=== PATIENT | female | born 1950 | race Caucasian/White ===

== ENCOUNTER 2021-01-16 09:21 | Emergency (ER) | payer MEDICARE, OTHER, SELFPAY ==
[2021-01-16 09:22] VITALS: BP 149/68; PULSE 55; RESP 18; TEMP 35.8; O2SAT 97; BMI 33.5
--- NOTE | 2021-01-16 09:34 | CTR_ITS ---
PROCEDURE INFORMATION: Exam: CT Abdomen And Pelvis Without Contrast Exam date and time: 01/16/2021 9:45 AM Age: 70 years old Clinical indication: Abdominal pain; Flank; Right; Prior surgery; Surgery type: Gb; Additional info: Right flank pain, hematuria TECHNIQUE: Imaging protocol: Computed tomography of the abdomen and pelvis without contrast. Radiation optimization: All CT scans at this facility use at least one of these dose optimization techniques: automated exposure control; mA and/or kV adjustment per patient size (includes targeted exams where dose is matched to clinical indication); or iterative reconstruction. COMPARISON: No relevant prior studies available. RADIATION DOSE METRICS: Total DLP (mGy-cm): 1719.85 FINDINGS: Lungs: Mild basilar atelectasis/scarring. Mediastinal space: Small sliding hiatal hernia. Liver: Normal. Gallbladder and bile ducts: Cholecystectomy clips. Pancreas: Normal. No ductal dilation. Spleen: Spleen normal in size. Scattered punctate calcified granulomas. Adrenal glands: Normal. No mass. 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 3 mm calculus at the right ureteral orifice causing mild/moderate hydroureteronephrosis. No additional urinary tract calculi. No hydroureteronephrosis on the left. Normal renal contours. Stomach and bowel: Pancolonic diverticulosis without evidence of active diverticulitis. Appendix: No evidence of appendicitis. Intraperitoneal space: No free air. No significant fluid collection. Vasculature: Scattered atherosclerotic calcification. No abdominal aortic aneurysm. Lymph nodes: Unremarkable. No enlarged lymph nodes. Urinary bladder: Bladder partially filled. 3 mm calculus at the right ureteral orifice as described. Reproductive: Uterus not identified. Bones/joints: No acute or aggressive osseous lesion. Lumbar degenerative changes. Generalized osteopenia. Soft tissues: Unremarkable. CT/CT kidney stone 18715 IMPRESSION: 1. 3 mm obstructing calculus at the right ureteral orifice causing mild/moderate hydronephrosis. 2. Right renal partial duplication anomaly. 3. Incidental note of diverticulosis without evidence of active diverticulitis. Other chronic and incidental findings as described. Radiation Dose CTDIVOL = (mGy): DLP = 1719.85 (mGy-cm)
--- NOTE | 2021-01-16 09:35 | ED_ITS ---
HPI - Female Genitourinary General: Chief complaint: Urogenital-Female Stated complaint: Possible Kidney Stone Time Seen by Provider: 01/16/21 09:24 History of Present Illness: HPI Narrative: Patient planes about right flank pain and hematuria. Onset of pain was this morning severe. Patient has a history of UTI she has been treated for for the last couple weeks has recently been on Cipro and just finished that. Does complain about nausea no fever slight chills. MD elicited complaint: UTI and flank pain Pertinent past history: recurrent UTIs Onset (ago): minute(s) Location of symptoms: flank Severity: moderate Female Urogenital Radiation: Non-Radiating and R Flank Severity scale (1-10): 5 Quality of pain: sharp and aching Consistency: constant Vaginal discharge: none Exacerbating factors: none Relieving factors: none Associated symptoms: Reports fevers/chills and nausea; Deny headache(s) Review of Systems Const: Denies: fever(s), chills or body aches Eyes: Denies: change in vision or blurry vision ENMT: Denies: throat pain or nasal congestion Card: Denies: chest pain or dyspnea on exertion Resp: Denies: dyspnea, productive cough or non-productive cough GI: Reports: nausea : Reports: flank pain and hematuria Musc: Denies: extremity pain Skin/Breast: Denies: rash Neuro: Denies: headache(s) Psych: Denies: anxiety or depression Davin/Lymph: Denies: easy bruising Physical Exam Const: COMMON NORMALS: no acute distress, average body habitus and patient oriented x3 HENMT: COMMON NORMALS: normocephalic HEAD & SCALP: normal to inspection and normocephalic FACE & SINUS: normal facial exam Eye: COMMON NORMALS: conjunctivae normal GENERAL EYE: appearance normal, both eyes and all related structures CONJUNCTIVA: Yes conjunctivae normal Neck/C-Spine: COMMON NORMALS: no JVD Chest: COMMONS NORMALS: normal inspection of the chest Resp: COMMON NORMALS: normal respiratory effort and clear to auscultation bilaterally AUSCULTATION: clear to auscultation bilaterally Cardio: COMMON NORMALS: no JVD, regular rate and regular rhythm RATE: regular rate RHYTHM: regular rhythm GI: COMMON NORMALS: Normal to inspection, nondistended, normoactive bowel sounds present : BLADDER/KIDNEY EXAM: Yes CVA tenderness on the right Back/Pelvis: GENERAL BACK: Yes CVA tenderness Extremity: COMMON NORMALS: normal to inspection and full ROM Neuro: COMMON NORMALS: patient oriented x3 Course Vital Signs: Vital signs: Vital Signs Temperature 96.4 F L 01/16/21 09:22 Pulse Rate 55 L 01/16/21 09:22 Respiratory Rate 18 01/16/21 09:22 Blood Pressure 149/68 01/16/21 09:22 Pulse Oximetry 97 01/16/21 09:22 Coding Level of Care Code ED Operations Support Representative for Josefina Dumont
[2021-01-16 09:39] VITALS: BP 149/68; PULSE 54; RESP 18; O2SAT 96
[2021-01-16] MEDS: ondansetron 2 mg/ML SDV 2 mL 4 MG IVP (09:48)
[2021-01-16] MEDS: ketorolac 30 mg/mL INJ IVP (09:48)
[2021-01-16] MEDS: sodium chloride 0.9% 1,000 ML 999 ML IV (09:49)
[2021-01-16 09:54] LABS: Basophils # 0.1 10^3/uL (0.0-0.1); Basophils % 0.5 %; Eosinophils # 0.2 10^3/uL (0.0-0.8); Eosinophils % 2.1 %; Hematocrit 39.6 % (37.0-47.0); Hemoglobin 12.6 g/dL (11.5-15.3); Lymphocytes # 2.2 10^3/uL (0.8-4.8); Mean Corpuscular HGB Conc 31.8 g/dL (30.0-36.0); Mean Corpuscular Hemoglobin 29.6 pg (28.0-34.0); Mean Platelet Volume 10.5 fL (7.4-10.4); Monocytes # 0.4 10^3/uL (0.2-0.9); Monocytes % 4.3 %; Neutrophils # 6.94 10^3/uL (1.8-7.7); Neutrophils % 70.8 %; Nucleated Red Blood Cells % 0 %; Platelet Count 239 10^3/cmm (130-400); Red Blood Count 4.26 10^6/uL (4.1-5.3); Red Cell Distribution Width 13.4 % (12.1-15.1); White Blood Count 9.8 10^3/uL (4.0-10.0)
[2021-01-16 10:25] LABS: Lactate (Lactic Acid level) 1.1 mmol/L (0.5-2.2)
[2021-01-16 10:26] LABS: Alanine Aminotransferase 17 U/L (0-33); Albumin Level 3.8 g/dL (3.5-5.2); Alkaline Phosphatase 52 IU/L (35-105); Anion Gap 15.9 (5-19); Aspartate Amino Transferase 14 U/L (0-32); Blood Urea Nitrogen 11 mg/dL (8-23); Calcium 8.5 mg/dL (8.5-10.5); Carbon Dioxide 22 mmol/L (22-29); Chloride 104 mmol/L (98-107); Glomerular Filtration Rate 122.7 mL/min (90-130); Glucose 165 mg/dL (65-115); Lipase 18 U/L (13-60); Osmolality Calculated 289 mOsm/kg (285-295); Potassium 3.9 mmol/L (3.5-5.1); Sodium 138 mmol/L (136-145); Total Bilirubin 0.3 mg/dL (0.15-1.2); Total Protein 6.8 g/dL (6.6-8.7)
[2021-01-16 10:31] VITALS: PULSE 58; RESP 18; O2SAT 98
[2021-01-16 11:15] LABS: Add Urine Microscopic? YES; Bilirubin Urine Neg (Negative); Blood Urine 3+ (Negative); Glucose Urine UA Norm (Normal); Ketones Urine Negative (Negative); Leukocyte Esterase Urine Negative (Negative); Nitrate Urine Negative (Negative); Protein Urine Neg (Negative); Squamous Epithelial Cell Urine 0-4 /hpf (0-5); Urine Appearance SL Hazy (CLEAR); Urine Color Yellow (Yellow); Urobilinogen Urine Norm (Negative); pH Urine 5 (5-7)
[2021-01-16 11:16] LABS: Add Urine Culture? Yes; Bacteria Urine TRACE /hpf; Mucus Urine TRACE /hpf
[2021-01-16 11:54] VITALS: BP 136/60; PULSE 58; RESP 18; O2SAT 98
== END 2021-01-16 11:54 | disposition home or self-care (01) ==
PROVIDERS: Emergency Provider Nurse Practitioner Family
DX: R10.9 Unspecified abdominal pain (principal); R31.9 Hematuria, unspecified
CPT/HCPCS: 74176; 80053; 81001; 83605; 83690; 85025; 87086; 87186; 96361; 96374; 96375; 99283; J1885; J2405; J7030